=== PATIENT | male | born 1990 | race Two or more races ===

== ENCOUNTER 2019-05-16 11:29 | Emergency (ER) | payer MEDICAID ==
[~2019-05-16] VITALS: Ht 160 cm; Wt 68.0 kg
--- NOTE | 2019-05-16 11:49 | NUR ---
Fell off the ladder (about 10 feet); no KO; c/o headache and left eye visual disturbance. PT AAOX4, VSS. RR EVEN & UNLABORED. DENIES CP, SOB, DIZZINESS, N/V, WEAKNESS @ THIS TIME. SEEN & EVAL'D BY DR. GANN. WILL CONT TO MONITOR. PT TO CT VIA WHEELCHAIR.
[2019-05-16] MEDS ORDERED: LIDOCAINE 1%-EPI 1:100,000 20 ML VIAL ONE (12:33)
[2019-05-16] MEDS ORDERED: ACETAMINOPHEN 325 MG TABLET PO ONE (15:00)
[2019-05-16] MEDS ORDERED: ACETAMINOPHEN ES 500 MG TABLET ONE (15:02)
[2019-05-16 15:05] VITALS: BP 132/78
--- NOTE | 2019-05-16 15:05 | NUR ---
Patient discharged to home in stable condition. Written and verbal after care instructions given. Patient verbalizes understanding of instruction.
== END 2019-05-16 15:05 | disposition home or self-care (01) ==
LOC: ER 11:29
DX: S01.81XA Laceration without foreign body of other part of head, initial encounter (principal); S50.311A Abrasion of right elbow, initial encounter; S60.511A Abrasion of right hand, initial encounter; W11.XXXA Fall on and from ladder, initial encounter; Y93.89 Activity, other specified; Y92.89 Other specified places as the place of occurrence of the external cause; Y99.8 Other external cause status
CPT/HCPCS: 12014; 70450; 72125; 99284; A6403; J3490; L0172 ×2